=== PATIENT | male | born 1995 | race African-American/Black ===

== ENCOUNTER 2024-03-09 14:35 | Emergency (ER) | payer MEDICAID ==
[~2024-03-09] VITALS: Ht 185.4 cm; Wt 90.0 kg
[2024-03-09 14:42] VITALS: TEMP 36.7; O2SAT 100; O2SAT 99
[2024-03-09 16:12] VITALS: BP 149/98; PULSE 84; RESP 16
[2024-03-09] MEDS: IBUPROFEN 600MG TABLET PO ONE (16:12)
== END 2024-03-09 16:54 | disposition home or self-care (01) ==
LOC: ER 14:35 → CANBEDREQ 16:15 → ER 16:54
DX: M79.672 Pain in left foot (principal)
CPT/HCPCS: 73630; 99283